=== PATIENT | male | born 1980 ===

== ENCOUNTER 2017-09-23 18:30 | Emergency (ER) | payer MEDICAID ==
[2017-09-23 18:30] VITALS: BMI 31.1
[2017-09-23] MEDS ORDERED: guaiFENesin 200 mg/10 ml Syrup UD PO ONE (19:15)
[2017-09-23] MEDS ORDERED: guaiFENesin 100 mg/5 ml Syrup UD ONE (19:25)
[2017-09-23] MEDS: Albuterol-Ipratrop 3 mg / 0.5 (3 ml) UD IH SCH ×2 (19:29→20:04)
--- NOTE | 2017-09-23 20:01 | ED PDOC ---
HPI: General Adult Time Seen by Provider: 09/23/17 18:54 Chief Complaint (Nursing): Flu-like Symptoms Chief Complaint (Provider): Flu-like Symptoms History Per: Patient History/Exam Limitations: no limitations Additional Complaint(s): Ciara Dasilva is a 37 year old non-domiciled male that presents to the ED with a chief complaint of sudden onset of fever associated with chills, body aches, cough. Otherwise: (-) sore throat, (-) URI symptoms, (-) SOB, (-) chest pain, (-) N/V/D, (-) abdominal pain, (-) flank pain, (-) urinary symptoms, (-) recent travel, (-) sick contacts. Past Medical History Reviewed: Historical Data, Nursing Documentation, Vital Signs Vital Signs: Last Vital Signs Temp 101 F H 09/23/17 18:45 Pulse 97 H 09/23/17 18:45 Resp 20 09/23/17 18:45 BP 155/90 H 09/23/17 18:45 Pulse Ox 99 09/23/17 20:07 - Medical History PMH: Asthma (Patient reports he has asthma as a child.), Depression Denies: Diabetes, Hepatitis, HIV, HTN, Seizures, Sexually Transmitted Disease - Family History Family History: States: Unknown Family Hx - Living Arrangements Living Arrangements: Other (non-domiciled) - Social History Current smoker - smoking cessation education provided: Yes - Immunization History Hx Tetanus Toxoid Vaccination: No Hx Influenza Vaccination: No Hx Pneumococcal Vaccination: No - Home Medications Home Medications: Ambulatory Orders Medication Instructions Recorded Gabapentin [Neurontin] 300 mg PO BID #60 cap 08/16/17 traZODone [Desyrel] 100 mg PO HS PRN #30 tab 08/16/17 Albuterol HFA [Ventolin HFA 90 2 puff IH [id number] #1 puff 09/23/17 mcg/actuation (8 g)] Ibuprofen [Motrin Tab] 600 mg PO QID PRN #20 tab 09/23/17 Oseltamivir Phosphate [Tamiflu] 75 mg PO BID #10 capsule 09/23/17 predniSONE [predniSONE Tab] 40 mg PO DAILY #8 tab 09/23/17 - Allergies Allergies/Adverse Reactions: Allergies Allergy/AdvReac Type Severity Reaction Status Date / Time No Known Allergies Allergy Verified 08/12/17 21:01 Review of Systems ROS Statement: Except As Marked, All Systems Reviewed And Found Negative Constitutional: Positive for: Fever, Chills, Other (body aches) Cardiovascular: Negative for: Chest Pain Respiratory: Positive for: Cough. Negative for: Shortness of Breath Physical Exam - Reviewed Nursing Documentation Reviewed: Yes Vital Signs Reviewed: Yes - Physical Exam Comments: GENERAL APPEARANCE: Patient is awake, alert, oriented x 3, in mild distress SKIN: Warm, dry; (-) cyanosis, (-) rash. (-) Decubitus Ulcer EYES: (-) conjunctival pallor, (-) scleral icterus, (-) conjunctival hemorrhage. ENMT: Mucous membranes moist. TMs: (-) erythema. Airway patent: (-) stridor. Pharynx: (-) erythema, (-) exudate. NECK: (-) tenderness, (-) stiffness, (-) meningismus, (-) lymphadenopathy. CHEST AND RESPIRATORY: (-) accessory muscle use. Lungs: (-) rales, (-) rhonchi, (+) expiratory wheezes, (-) rub; breath sounds equal bilaterally. HEART AND CARDIOVASCULAR: (-) irregularity; (-) murmur, (-) gallop, (-) rub. ABDOMEN AND GI: Soft; (-) tenderness, (-) guarding; (-) organomegaly; (-) mass ; (-) CVA tenderness. EXTREMITIES: (-) deformity; (-) cellulitis, (-) lymphangitis; (-) subungual hemorrhage; (-) edema. NEURO AND PSYCH: Mental status as above; (-) focal findings. - ECG O2 Sat by Pulse Oximetry: 99 (RA) Pulse Ox Interpretation: Normal Medical Decision Making Medical Decision Making: Impression: Flu-Like Symptoms Plan: * Chest X-Ray * Tylenol 3 975 mg PO * Robitussin 200 mg PO * Prednisone 40 mg PO * Flu Swab * Reevaluation 20:02 Chest X-Ray : NAD, as read by PA. On reevaluation patient reports feeling better. Lungs CTA, no wheezing. Dx of possible flu d/w patient, medicated with Tamiflu 75 mg PO. Advised to follow up with the clinic in 1-2 days without fail. Advised to take medication as prescribed. Return to the emergency room at any time for any new or worsening symptoms. Patient states he fully agrees with and understands discharge instructions. States that he agrees with the plan and disposition. Verbalized and repeated discharge instructions and plan. I have given the patient opportunity to ask any additional questions. Scribe Attestation: Documented by Seema Salazar, acting as a scribe for Rona Pollard PA-C. Provider Scribe Attestation: All medical record entries made by the Scribe were at my direction and personally dictated by me. I have reviewed the chart and agree that the record accurately reflects my personal performance of the history, physical exam, medical decision making, and the department course for this patient. I have also personally directed, reviewed, and agree with the discharge instructions and disposition. Disposition - Clinical Impression Clinical Impression: Influenza, Asthma - Patient ED Disposition Is Patient to be Admitted: No Counseled Patient/Family Regarding: Studies Performed, Diagnosis, Need For Followup, Rx Given - Disposition Referrals: FAMILY PROVIDER,NO [Primary Care Provider] - Disposition: Routine/Home Disposition Time: 20:02 Condition: STABLE Additional Instructions: Thank you for letting us take care of you today. You were treated for flu, asthma. The emergency medical care you received today was directed at your acute symptoms. If you were prescribed any medication, please fill it and take as directed. It may take several days for your symptoms to resolve. Return to the Emergency Department if your symptoms worsen, do not improve, or if you have any other problems. Please call one of the physicians/clinics you have been referred to that are listed on the Patient Visit Information form that is included in your discharge packet. Bring any paperwork you were given at discharge with you along with any medications you are taking to your follow up visit. Our treatment cannot replace ongoing medical care by a primary care provider (PCP) outside of the emergency department. Thank you for allowing the [facility] team to be part of your care today. 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
[2017-09-23 21:19] VITALS: BP 108/56; PULSE 94; RESP 18; TEMP 100.7; O2SAT 98
--- NOTE | 2017-09-24 07:52 | RAD ---
HISTORY: cough COMPARISON: No prior. TECHNIQUE: Chest PA and lateral FINDINGS: LUNGS: Limited patchy density is questioned left base which may or represent a small area of atelectasis though an infiltrate is not excluded here. Remaining lung gill appear clear otherwise. PLEURA: No significant pleural effusion identified. No pneumothorax apparent. CARDIOVASCULAR: Normal. OSSEOUS STRUCTURES: No significant abnormalities. VISUALIZED UPPER ABDOMEN: Normal. OTHER FINDINGS: None. IMPRESSION: Findings suspicious for limited patchy atelectasis or infiltrate left base with remaining lung gill clear. Further clinical correlation is advised.
== END 2017-09-23 21:32 | disposition home or self-care (01) ==
LOC: SUPCPDRO 18:30 → H.ER 18:30
DX: J11.1 Influenza due to unidentified influenza virus with other respiratory manifestations (principal); J45.909 Unspecified asthma, uncomplicated; F32.9 Major depressive disorder, single episode, unspecified; F17.200 Nicotine dependence, unspecified, uncomplicated

== ENCOUNTER 2017-12-30 15:03 | Emergency (ER) | payer MEDICAID ==
[2017-12-30 15:03] VITALS: BMI 31.1
[2017-12-30 15:46] VITALS: BP 144/74; PULSE 78; RESP 18; TEMP 97.8; O2SAT 99
[2017-12-30] MEDS ORDERED: Lidocaine 1% 20 MG/2 ML PF AMP ONE (16:51)
[2017-12-30] MEDS ORDERED: Tdap Vaccine 0.5 ml Vial (10-64 yrs) IM ONE ×2 (17:01→17:13)
--- NOTE | 2017-12-30 17:01 | ED PDOC ---
HPI: Skin/Bite Injury Time Seen by Provider: 12/30/17 16:39 Chief Complaint (Nursing): Abnormal Skin Integrity Chief Complaint (Provider): Abnormal Skin Integrity History/Exam Limitations: no limitations Onset/Duration Of Symptoms: Mins (prior to arrival) Current Symptoms Are (Timing): Still Present Additional Complaint(s): 37 year old male presents to the emergency room for a small laceration to his forearm after accidentally stabbing his arm with a pen knife prior to arrival. Upon arrival, bleeding is under control and patient is dynamically stable. PMD: none provided Past Medical History Reviewed: Historical Data, Nursing Documentation, Vital Signs Vital Signs: Last Vital Signs Temp 97.8 F 12/30/17 15:43 Pulse 78 12/30/17 15:43 Resp 18 12/30/17 15:43 BP 144/74 12/30/17 15:43 Pulse Ox 99 12/30/17 17:20 - Medical History PMH: Asthma (Patient reports he has asthma as a child.), Depression Denies: Diabetes, Hepatitis, HIV, HTN, Seizures, Sexually Transmitted Disease - Surgical History Surgical History: No Surg Hx - Family History Family History: States: Unknown Family Hx - Social History Current smoker - smoking cessation education provided: Yes (light smoker) Alcohol: Social Drugs: Other - Immunization History Hx Tetanus Toxoid Vaccination: No Hx Influenza Vaccination: No Hx Pneumococcal Vaccination: No - Home Medications Home Medications: Ambulatory Orders Medication Instructions Recorded Gabapentin [Neurontin] 300 mg PO BID #60 cap 08/16/17 traZODone [Desyrel] 100 mg PO HS PRN #30 tab 08/16/17 Albuterol HFA [Ventolin HFA 90 2 puff IH [id number] #1 puff 09/23/17 mcg/actuation (8 g)] Ibuprofen [Motrin Tab] 600 mg PO QID PRN #20 tab 09/23/17 Oseltamivir Phosphate [Tamiflu] 75 mg PO BID #10 capsule 09/23/17 predniSONE [predniSONE Tab] 40 mg PO DAILY #8 tab 09/23/17 Cephalexin [cephalexin] 500 mg PO QID #40 cap 12/30/17 - Allergies Allergies/Adverse Reactions: Allergies Allergy/AdvReac Type Severity Reaction Status Date / Time No Known Allergies Allergy Verified 08/12/17 21:01 Review of Systems ROS Statement: Except As Marked, All Systems Reviewed And Found Negative Skin: Positive for: Other (small laceration to left forearm) Physical Exam - Reviewed Nursing Documentation Reviewed: Yes Vital Signs Reviewed: Yes - Physical Exam Appears: Positive for: Well, Non-toxic, No Acute Distress Head Exam: Positive for: ATRAUMATIC, NORMOCEPHALIC Skin: Positive for: Normal Color, Warm, Dry Eye Exam: Positive for: Normal appearance Extremity: Positive for: Normal ROM (and full strength in all distal upper extremities), Other (small 1cm linearly vertical, superficial laceration to anterior left forearm) Neurologic/Psych: Positive for: Alert, Oriented (x3). Negative for: Motor/ Sensory Deficits - ECG O2 Sat by Pulse Oximetry: 99 (RA) Pulse Ox Interpretation: Normal Medical Decision Making Medical Decision Making: Time: 17:01 Initial Impression: 1cm laceration to left anterior forearm Initial Plan: --Keflex 500mg PO --Tetanus shot 0.5ml IM 17:00 Patient tolerated sutures well - see procedure note. He was advised to follow up for suture removal in seven days. Scribe Attestation: Documented by Chiara Del Castillo, acting as a scribe for Raul Holt PA-C. Provider Scribe Attestation: All medical record entries made by the Scribe were at my direction and personally dictated by me. I have reviewed the chart and agree that the record accurately reflects my personal performance of the history, physical exam, medical decision making, and the department course for this patient. I have also personally directed, reviewed, and agree with the discharge instructions and disposition. Disposition - Clinical Impression Clinical Impression: Laceration - Patient ED Disposition Is Patient to be Admitted: No Doctor Will See Patient In The: Office - Disposition Disposition: Routine/Home Disposition Time: 21:00 Condition: STABLE Additional Instructions: sutures removed in 7 days Prescriptions: Cephalexin [cephalexin] 500 mg PO QID #40 cap Instructions: Laceration Repair, Wound Care (DC), Wound Care Forms: [email or web address] (Sammarinese) Procedure: Wound Repair - Time Performed Time Performed: 17:00 - Time Out Time Out: Side verified, Site verified, Patient ID confirmed, Sterile procedures obs. - Consent Obtained Consent obtained: Verbal - Performed by Performed by: Mid-level Provider - Location Location:: Left, Forearm (anterior) Shape:: Linear (vertical) Dimensions Length cm: 1cm Depth:: Epidermis (superficial) - Anesthetic Technique Local/Regional Anesthetic:: Lidocaine 1% - Debris Debris:: None - Irrigated Irrigated with ml of normal saline: 2ml - Wound repair method Sutures:: # (285), Type (nylon), Technique (interrupted) - Muscle repiar layer closed with Muscle repair layer closed with:: Wound well approximated, Abx ointment applied , Dressing applied, Tetanus ordered - Patient tolerated procedure Patient Tolerated Procedure:: Well
== END 2017-12-30 17:33 | disposition home or self-care (01) ==
LOC: H.ER 15:03
DX: S51.812A Laceration without foreign body of left forearm, initial encounter (principal); W26.0XXA Contact with knife, initial encounter; Z23 Encounter for immunization; F17.200 Nicotine dependence, unspecified, uncomplicated; J45.909 Unspecified asthma, uncomplicated; Z86.59 Personal history of other mental and behavioral disorders

== ENCOUNTER 2018-07-14 05:52 | Emergency (ER) | payer SELFPAY ==
[2018-07-14 05:52] VITALS: BMI 31.1
[2018-07-14 06:09] VITALS: BP 143/90; PULSE 75; RESP 18; TEMP 97.7; O2SAT 98
--- NOTE | 2018-07-14 09:23 | ED PDOC ---
Lower Extremity Pain/Injury Time Seen by Provider: 07/14/18 07:01 Chief Complaint (Nursing): Lower Extremity Problem/Injury Chief Complaint (Provider): Lower Extremity Problem/Injury History Per: Patient History/Exam Limitations: no limitations Onset/Duration Of Symptoms: Days Current Symptoms Are (Timing): Still Present Additional Complaint(s): 37 y/o homeless male with a PMHx of asthma and depression presents to the ED for evaluation of bilateral foot pain. Past Medical History Reviewed: Historical Data, Nursing Documentation, Vital Signs Vital Signs: Last Vital Signs Temp 97.7 F 07/14/18 06:07 Pulse 75 07/14/18 06:07 Resp 18 07/14/18 06:07 BP 143/90 07/14/18 06:07 Pulse Ox 98 07/14/18 06:07 - Medical History PMH: Asthma (Patient reports he has asthma as a child.), Depression Denies: Diabetes, Hepatitis, HIV, HTN, Seizures, Sexually Transmitted Disease - Surgical History Surgical History: No Surg Hx - Family History Family History: States: Unknown Family Hx - Living Arrangements Living Arrangements: Other (Homeless) - Immunization History Hx Tetanus Toxoid Vaccination: No Hx Influenza Vaccination: No Hx Pneumococcal Vaccination: No - Home Medications Home Medications: Ambulatory Orders Medication Instructions Recorded Gabapentin [Neurontin] 300 mg PO BID #60 cap 08/16/17 traZODone [Desyrel] 100 mg PO HS PRN #30 tab 08/16/17 Albuterol HFA [Ventolin HFA 90 2 puff IH [id number] #1 puff 09/23/17 mcg/actuation (8 g)] Ibuprofen [Motrin Tab] 600 mg PO QID PRN #20 tab 09/23/17 Oseltamivir Phosphate [Tamiflu] 75 mg PO BID #10 capsule 09/23/17 predniSONE [predniSONE Tab] 40 mg PO DAILY #8 tab 09/23/17 Cephalexin [cephalexin] 500 mg PO QID #40 cap 12/30/17 Ketoconazole 1 appful TOP BID #1 powder 07/14/18 - Allergies Allergies/Adverse Reactions: Allergies Allergy/AdvReac Type Severity Reaction Status Date / Time No Known Allergies Allergy Verified 07/14/18 06:06 Review of Systems ROS Statement: Except As Marked, All Systems Reviewed And Found Negative Musculoskeletal: Positive for: Foot Pain (bilateral) Physical Exam - Reviewed Nursing Documentation Reviewed: Yes Vital Signs Reviewed: Yes - Physical Exam Appears: Positive for: No Acute Distress Extremity: Positive for: Other (moccasin distribution erythematous, indurated bilateral feed. ) - ECG O2 Sat by Pulse Oximetry: 98 (RA) Pulse Ox Interpretation: Normal Medical Decision Making Medical Decision Making: Time: 831 -- Patient is stable for discharge home with a diagnosis of tinea pedis. Patient advised to follow up with [facility] or [facility]. Scribe Attestation: Documented by Preston Ritter, acting as a scribe for Toya Reeves MD. Provider Scribe Attestation: All medical record entries made by the Scribe were at my direction and personally dictated by me. I have reviewed the chart and agree that the record accurately reflects my personal performance of the history, physical exam, medical decision making, and the department course for this patient. I have also personally directed, reviewed, and agree with the discharge instructions and disposition. Disposition - Clinical Impression Clinical Impression: Tinea pedis - Patient ED Disposition Is Patient to be Admitted: No Counseled Patient/Family Regarding: Studies Performed, Diagnosis, Need For Followup, Rx Given - Disposition Referrals: [facility] [Outside] [facility] [Outside] Disposition: Routine/Home Disposition Time: 08:32 Condition: STABLE Prescriptions: Ketoconazole 1 appful TOP BID #1 powder Instructions: Athlete's Foot Forms: [employer] (Malaysian)
== END 2018-07-14 08:32 | disposition home or self-care (01) ==
LOC: H.ER 05:52
DX: B35.3 Tinea pedis (principal)